=== PATIENT | female | born 1985 | race Caucasian/White ===

== ENCOUNTER 2018-11-14 00:54 | Emergency (ER) | payer MEDICAID, OTHER ==
[2018-11-14] MEDS ORDERED: Zofran 4 MG/2 ML VIAL IV ONE (01:21)
[2018-11-14] MEDS ORDERED: Hydromorphone 1 mg/ml Ampule IV ONE ×2 (01:21→05:21)
--- NOTE | 2018-11-14 01:21 | ERPHSYRPT ---
- History of Present Illness Time Seen by Provider: 11/14/18 01:10 Historian: patient, family Exam Limitations: clinical condition Patient Subjective Stated Complaint: Abdominal Pain Triage Nursing Assessment: Patient's brought back to ED and transferred self to bed. Patient complains of abdominal pain on right lower side 10/10. Patients abdomen soft and round with BS X 4 present. Patient also complains of N/V. Patient currently vomiting large amount of brown emesis. Physician History: 33 y/o white female, with h/o kidney stones, presents with sudden onset of sharp cramping pain in right flank and right lower quad of a few hour duration. similar to ureterolithiasis pain in past. pt has had a btl in past. Timing/Duration: today Activities at Onset: none Quality: cramping, sharpness Abdominal Pain Onset Location: RLQ, flank (right) Modifying Factors: Improves With: nothing Associated Symptoms: back, diaphoresis, vomiting Previous symptoms: same symptoms as today Allergies/Adverse Reactions: No Known Drug Allergies Allergy (Verified 11/14/18 01:02) Hx Tetanus, Diphtheria Vaccination/Date Given: (UNKNOWN) Hx Influenza Vaccination/Date Given: No Hx Pneumococcal Vaccination/Date Given: No Immunizations Up to Date: Yes - Review of Systems Constitutional: No Symptoms Eyes: No Symptoms Ears, Nose, & Throat: No Symptoms Respiratory: No Symptoms Cardiac: No Symptoms Abdominal/Gastrointestinal: Abdominal Pain, Nausea, Vomiting Genitourinary Symptoms: Flank Pain (right), No Dysuria, No Frequency, No Hematuria Musculoskeletal: No Symptoms Skin: No Symptoms Neurological: No Symptoms Psychological: No Symptoms Endocrine: No Symptoms Hematologic/Lymphatic: No Symptoms Immunological/Allergic: No Symptoms All Other Systems: Reviewed and Negative - Past Medical History Pertinent Past Medical History: Yes ENT History: Other Cardiac History: Hypertension Musculoskeletal History: Other History: Other Psycho-Social History: Depression Other Medical History: KIDNEY STONES, BACK PAIN - Past Surgical History Past Surgical History: Yes Neuro Surgical History: No Pertinent History Cardiac: No Pertinent History Respiratory: No Pertinent History Gastrointestinal: No Pertinent History Genitourinary: No Pertinent History Female Surgical History: Section, Tubal Ligation Other Surgical History: SEVERAL SURGERIS ON SALIVARY GLANDS, LITHOTRIPSY - Social History Smoking Status: Current every day smoker How long have you smoked: Since 9 Exposure to second hand smoke: Yes Alcohol Use: None Drug Use: none Patient Lives Alone: No Significant Family History: heart disease, diabetes - Female History Hx Last Menstrual Period: Last week Hx Now: No - Nursing Vital Signs Nursing Vital Signs: Initial Vital Signs Pulse Rate 119 H 11/14/18 01:02 Respiratory Rate 22 11/14/18 01:02 Blood Pressure 175/103 11/14/18 01:02 O2 Sat by Pulse Oximetry 100 11/14/18 01:02 Pain Scale Pain Intensity 4 - Physical Exam General Appearance: mild distress, alert, anxiety Eye Exam: PERRL/EOMI, eyes nml inspection Ears, Nose, Throat Exam: normal ENT inspection, moist mucous membranes Neck Exam: normal inspection, non-tender, supple, full range of motion Respiratory Exam: normal breath sounds, lungs clear, airway intact, No chest tenderness, No respiratory distress Cardiovascular Exam: regular rate/rhythm, normal heart sounds, normal peripheral pulses Gastrointestinal/Abdomen Exam: soft, normal bowel sounds, tenderness (right lq) , No guarding, No bruit Pelvic Exam: not done Rectal Exam: not done Back Exam: normal inspection, normal range of motion, CVA tenderness (right), No vertebral tenderness Extremity Exam: normal inspection, normal range of motion, deformities Neurologic Exam: alert, oriented x 3, cooperative, 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 Skin Exam: normal color, warm, dry Lymphatic Exam: No adenopathy SpO2 Interpretation: normal SpO2: 100 - Course Nursing assessment & vital signs reviewed: Yes Ordered Tests: Active Orders 24 hr Category Date Time Status IV Insertion STAT Care 11/14/18 01:21 Active ABDOMEN AND PELVIS W/0 CONTRAS [CT] Stat Exams 11/14/18 01:22 Taken AMYLASE Stat Lab 11/14/18 01:30 Completed CBC W DIFF Stat Lab 11/14/18 01:30 Completed CMP Stat Lab 11/14/18 01:30 Completed CULTURE,URINE Stat Lab 11/14/18 01:38 Received HCG,QUALITATIVE URINE Stat Lab 11/14/18 01:38 Completed LIPASE Stat Lab 11/14/18 01:30 Completed Lactic Acid Stat Lab 11/14/18 01:35 Completed Manual Differential NC Stat Lab 11/14/18 01:30 Completed UA W/RFX UR CULTURE Stat Lab 11/14/18 01:38 Completed Medication Summary Discontinued Medications Generic Name Dose Route Start Last Admin Trade Name Freq PRN Reason Stop Dose Admin Hydromorphone HCl 1 mg 11/14/18 01:21 11/14/18 01:48 Hydromorphone 1 Mg/Ml Ampule IV 11/14/18 01:22 1 mg STAT ONE Administration Hydromorphone HCl Confirm 11/14/18 01:30 Hydromorphone 1 Mg/Ml Ampule Administered 11/14/18 01:31 Dose 1 mg .ROUTE .STK-MED ONE Sodium Chloride 1,000 mls @ 999 mls/hr 11/14/18 01:21 11/14/18 03:01 Sodium Chloride 0.9% 1000 Ml IV 11/14/18 02:21 500 mls/hr .Q1H1M STA Administration Sodium Chloride Confirm 11/14/18 01:25 Sodium Chloride 0.9% 1000 Ml Administered 11/14/18 01:26 Dose 1,000 mls @ ud .ROUTE .STK-MED ONE Sodium Chloride Confirm 11/14/18 03:01 Sodium Chloride 0.9% 1000 Ml Administered 11/14/18 03:02 Dose 1,000 mls @ ud .ROUTE .STK-MED ONE Ketorolac Tromethamine 30 mg 11/14/18 02:31 11/14/18 02:34 Toradol 30 Mg Injection IM 11/14/18 02:32 30 mg STAT ONE Administration Ketorolac Tromethamine Confirm 11/14/18 02:33 Toradol 30 Mg Injection Administered 11/14/18 02:34 Dose 30 mg .ROUTE .STK-MED ONE Ondansetron HCl 4 mg 11/14/18 01:21 11/14/18 01:47 Zofran 4 Mg/2 Ml Vial IV 11/14/18 01:22 4 mg STAT ONE Administration Ondansetron HCl Confirm 11/14/18 01:25 Zofran 4 Mg/2 Ml Vial Administered 11/14/18 01:26 Dose 4 mg .ROUTE .STK-MED ONE Lab/Rad Data: Laboratory Result Diagrams 11/14/18 01:30 11/14/18 01:30 Laboratory Results 11/14/18 11/14/18 11/14/18 Range/Units 01:38 01:38 01:35 WBC (4.0-10.5) K/mm3 RBC (4.1-5.4) M/mm3 Hgb (12.0-16.0) gm/dl Hct (35-47) % MCV (78-100) fl MCH (26-32) pg MCHC (32-36) g/dl RDW (11.5-14.0) % Plt Count (150-450) K/mm3 MPV (6-9.5) fl Absolute Granulocytes (1.4-6.9) Segmented Neutrophils (36.0-66.0) % Band Neutrophils (0.0-2.0) % Lymphocytes (Manual) (24-44) % Monocytes (Manual) (0.0-12.0) % Eosinophils (Manual) (0.00-3.0) % Toxic Granulation Platelet Estimate (NORMAL) RBC Morphology Sodium (137-145) mmol/L Potassium (3.5-5.1) mmol/L Chloride (98-107) mmol/L Carbon Dioxide (22-30) mmol/L Anion Gap (5-15) MEQ/L BUN (7-17) mg/dL Creatinine (0.52-1.04) mg/dL Estimated GFR ML/MIN Glucose (74-106) mg/dL Lactic Acid 1.6 (0.4-2.0) Calcium (8.4-10.2) mg/dL Total Bilirubin (0.2-1.3) mg/dL AST (14-36) U/L ALT (0-35) U/L Alkaline Phosphatase (38-126) U/L Serum Total Protein (6.3-8.2) g/dL Albumin (3.5-5.0) g/dL Amylase (30-110) U/L Lipase (23-300) U/L Urine Color YELLOW (YELLOW) Urine Appearance SLIGHTLY CLOUDY (CLEAR) Urine pH 7.0 (5-6) Ur Specific [place] 1.015 (1.005-1.025) Urine Protein NEGATIVE (Negative) Urine Ketones NEGATIVE (NEGATIVE) Urine Blood MODERATE (0-5) Rey/ul Urine Nitrite NEGATIVE (NEGATIVE) Urine Bilirubin NEGATIVE (NEGATIVE) Urine Urobilinogen NEGATIVE (0-1) mg/dL Ur Leukocyte Esterase SMALL (NEGATIVE) Urine WBC (Auto) 16-25 (0-5) /HPF Urine RBC (Auto) 51-100 (0-2) /HPF U Epithel Cells (Auto) NONE (FEW) /HPF Urine Bacteria (Auto) FEW (NEGATIVE) /HPF Urine Mucus (Auto) SLIGHT (NEGATIVE) /HPF Urine Culture Reflexed YES (NO) Urine Glucose NEGATIVE (NEGATIVE) mg/dL Urine HCG, Qual NEGATIVE (Negative) 11/14/18 11/14/18 Range/Units 01:30 01:30 WBC 10.0 (4.0-10.5) K/mm3 RBC 4.90 (4.1-5.4) M/mm3 Hgb 14.0 (12.0-16.0) gm/dl Hct 41.4 (35-47) % MCV 84.5 (78-100) fl MCH 28.6 (26-32) pg MCHC 33.8 (32-36) g/dl RDW 12.9 (11.5-14.0) % Plt Count 280 (150-450) K/mm3 MPV 10.6 H (6-9.5) fl Absolute Granulocytes 6.37 (1.4-6.9) Segmented Neutrophils 67 H (36.0-66.0) % Band Neutrophils 3 H (0.0-2.0) % Lymphocytes (Manual) 23 L (24-44) % Monocytes (Manual) 4 (0.0-12.0) % Eosinophils (Manual) 3 (0.00-3.0) % Toxic Granulation 1+ Platelet Estimate NORMAL (NORMAL) RBC Morphology ABNORMAL Sodium 137 (137-145) mmol/L Potassium 3.8 (3.5-5.1) mmol/L Chloride 100 (98-107) mmol/L Carbon Dioxide 27 (22-30) mmol/L Anion Gap 13.4 (5-15) MEQ/L BUN 8 (7-17) mg/dL Creatinine 0.76 (0.52-1.04) mg/dL Estimated GFR > 60.0 ML/MIN Glucose 108 H (74-106) mg/dL Lactic Acid (0.4-2.0) Calcium 9.3 (8.4-10.2) mg/dL Total Bilirubin 0.50 (0.2-1.3) mg/dL AST 58 H (14-36) U/L ALT 91 H (0-35) U/L Alkaline Phosphatase 112 (38-126) U/L Serum Total Protein 7.4 (6.3-8.2) g/dL Albumin 3.9 (3.5-5.0) g/dL Amylase 58 (30-110) U/L Lipase 56 (23-300) U/L Urine Color (YELLOW) Urine Appearance (CLEAR) Urine pH (5-6) Ur Specific [place] (1.005-1.025) Urine Protein (Negative) Urine Ketones (NEGATIVE) Urine Blood (0-5) Rey/ul Urine Nitrite (NEGATIVE) Urine Bilirubin (NEGATIVE) Urine Urobilinogen (0-1) mg/dL Ur Leukocyte Esterase (NEGATIVE) Urine WBC (Auto) (0-5) /HPF Urine RBC (Auto) (0-2) /HPF U Epithel Cells (Auto) (FEW) /HPF Urine Bacteria (Auto) (NEGATIVE) /HPF Urine Mucus (Auto) (NEGATIVE) /HPF Urine Culture Reflexed (NO) Urine Glucose (NEGATIVE) mg/dL Urine HCG, Qual (Negative) - Progress Progress: improved, re-examined Progress Note: 11/14/18 05:22 ct scan abd/pelvis-4.3mm right mid ureteral stone with moderate right hydronephrosis, hydroureter. Counseled pt/family regarding: lab results, diagnosis, need for follow-up, rad results - Departure Time of Disposition: 05:24 Departure Disposition: Home Clinical Impression: Ureterolithiasis, UTI (urinary tract infection) Condition: Stable Critical Care Time: No Referrals: DOCTOR,NO FAMILY [Primary Care Provider] - Additional Instructions: drink plenty of fluids. follow up with your urologist to address right 4.3mm ureteral stone. add ibuprofen as discussed for pain. Prescriptions: Hydrocodone/APAP 5-325 Tab^^^ [[place] 5-325 Tablet^^^] 1 tab PO Q6HPRN PRN #10 tablet MDD 6 PRN Reason: Pain Ciprofloxacin [Cipro 500 MG] 500 mg PO BID #14 tablet
[2018-11-14] MEDS ORDERED: Sodium Chloride 0.9% 1000 ML 1,000 ML ONE ×2 (01:25→03:01)
[2018-11-14] MEDS ORDERED: Zofran 4 MG/2 ML VIAL ONE (01:25)
[2018-11-14] MEDS ORDERED: Hydromorphone 1 mg/ml Ampule ONE ×2 (01:30→05:24)
[2018-11-14 01:36] LABS: Granulocyte Absolute (ANC) 6.37 (1.4-6.9); Hematocrit 41.4 % (35-47); Mean Cell Volume 84.5 fl (78-100); Mean Corpuscular Hemoglobin 28.6 pg (26-32); Mean Corpuscular Hgb Concent. 33.8 g/dl (32-36); Mean Platelet Volume 10.6 fl (6-9.5); Platelet Count 280 K/mm3 (150-450); Red Cell Distribution Width 12.9 % (11.5-14.0)
[2018-11-14] MEDS: Sodium Chloride 0.9% 1000 ML 1,000 ML IV STA ×2 (01:48→03:01)
[2018-11-14 01:50] LABS: Appearance SLIGHTLY CLOUDY (CLEAR); Bacteria FEW /HPF (NEGATIVE); Bilirubin NEGATIVE (NEGATIVE); Blood MODERATE Ery/ul (0-5); Glucose NEGATIVE (NEGATIVE); Ketones NEGATIVE (NEGATIVE); Leukocyte Esterase SMALL (NEGATIVE); Mucus SLIGHT /HPF (NEGATIVE); Nitrite NEGATIVE (NEGATIVE); Protein,Urine Dip NEGATIVE (Negative); RBC 51-100 /HPF (0-2); Specific Gravity 1.015 (1.005-1.025); Urobilinogen NEGATIVE mg/dL (0-1)
[2018-11-14 01:59] LABS: BAND 3 % (0.0-2.0); Eosinophil 3 % (0.00-3.0); Lymphocytes 23 % (24-44); Monocyte 4 % (0.0-12.0); Neutrophils 67 % (36.0-66.0); Total Cells Counted 100
[2018-11-14 02:00] LABS: ALBUMIN 3.9 g/dL (3.5-5.0); ALKALINE PHOSPHATASE 112 U/L (38-126); AMYLASE 58 U/L (30-110); ANION GAP 13.4 MEQ/L (5-15); BLOOD UREA NITROGEN 8 mg/dL (7-17); CHLORIDE 100 mmol/L (98-107); Calcium 9.3 mg/dL (8.4-10.2); Carbon Dioxide 27 mmol/L (22-30); Creatinine 1 0.76 mg/dL (0.52-1.04); Glucose 108 mg/dL (74-106); LIPASE 56 U/L (23-300); Platelet Estimate NORMAL (NORMAL); Potassium 3.8 mmol/L (3.5-5.1); SGOT/AST 58 U/L (14-36); SGPT/ALT 91 U/L (0-35); SODIUM 137 mmol/L (137-145); Total Protein 7.4 g/dL (6.3-8.2); Toxic Granulation 1+
[2018-11-14] MEDS ORDERED: TORAdol 30 mg Injection IM ONE (02:31)
[2018-11-14] MEDS ORDERED: TORAdol 30 mg Injection ONE (02:33)
[2018-11-14 05:15] VITALS: PULSE 97
[2018-11-14] MEDS ORDERED: Cipro 500 MG PO ONE (05:21)
[2018-11-14] MEDS ORDERED: Cipro 500 MG ONE (05:24)
[2018-11-14 05:43] VITALS: BP 142/98; O2SAT 98
--- NOTE | 2018-11-14 09:27 | XRAY ---
Indication: Right flank pain. History stones. Multiple contiguous axial images obtained through the abdomen and pelvis without contrast as ordered. Comparison: None Lung bases demonstrates mild bibasilar dependent atelectasis and tiny left base calcified granuloma. No infiltrate or effusion. Heart is not enlarged. Noncontrasted stomach and bowel loops appear nonobstructed. Normal appendix. A few bilateral ovary cysts, largest on the left measuring 3 cm. Small cul-de-sac fluid presumed physiologic from rupture/leaking cyst. No free air. There is a 3-4 mm right mid ureteral calculus, approximately L4-L5 interspace level. Proximal right ureter is prominent along with moderate hydronephrosis consistent with obstructive uropathy. No perinephric fluid. At least 3 additional right renal calculi, largest 4 mm mid renal pelvis. At least 2 gallstones, largest 2.8 cm. Remaining liver, pancreas, spleen, adrenal glands, left kidney, left ureter, bladder, uterus, and aorta appear unremarkable for noncontrast exam. Osseous structures intact. Impression: 1. 3-4 mm right mid ureteral calculus producing obstruction as detailed. Additional right renal micro-calculi. 2. Gallstones better evaluated with sonogram if clinically warranted. 3. 3 cm left ovary cyst. Small cul-de-sac fluid presumed physiologic from rupture/leaking cyst. Comment: Preliminary interpretation was made by [facility]. No discrepancy. CT DI 22.39
== END 2018-11-14 05:50 | disposition home or self-care (01) ==
LOC: ED 00:54
DX: N13.2 Hydronephrosis with renal and ureteral calculous obstruction (principal); N39.0 Urinary tract infection, site not specified; Z87.442 Personal history of urinary calculi; I10 Essential (primary) hypertension; F32.9 Major depressive disorder, single episode, unspecified; Z72.0 Tobacco use
CPT/HCPCS: 36000; 36415; 74176; 80053; 81001; 82150; 83605; 83690; 84703; 85025; 87077; 87086; 87186; 96360; 96361; 96374; 96375; 96376; 99285; J1170; J1885; J2405; A9270-GY

== ENCOUNTER 2020-05-07 21:52 | Emergency (ER) | payer MEDICAID ==
--- NOTE | 2020-05-07 21:58 | ERPHSYRPT ---
- History of Present Illness Time Seen by Provider: 05/07/20 21:57 Historian: patient Exam Limitations: clinical condition Physician History: This is a 35-year-old white female who has a history of depression, hypertension and presents with right upper quadrant abdominal pain as well as right flank pain that is sharp and stabbing. She has no chest pain and no shortness of breath. Patient states the location of the pain depends on how she is laying. Patient has a history of kidney stones and ureteral stones. She has had to have lithotripsy in the past as well. Patient has a history of bilateral tubal ligation and . Patient began vomiting approximately 3 hours ago. Patient has no flulike symptoms. Patient has a history of drug dependence and admits to using methamphetamines earlier today Timing/Duration: yesterday Activities at Onset: none Quality: sharpness, stabbing Abdominal Pain Onset Location: RUQ, flank (Right flank) Pain Radiation: RUQ Severity of Pain-Max: moderate Severity of Pain-Current: moderate Modifying Factors: Improves With: lying down, vomiting Associated Symptoms: diaphoresis, nausea, vomiting, No chest pain, No fever/chills, No headache, No shortness of breath Previous symptoms: same symptoms as today Allergies/Adverse Reactions: No Known Drug Allergies Allergy (Verified 11/14/18 01:02) Hx Tetanus, Diphtheria Vaccination/Date Given: (UNKNOWN) Hx Influenza Vaccination/Date Given: No Hx Pneumococcal Vaccination/Date Given: No Travel Risk - International Travel Have you traveled outside of the country in past 3 weeks: No - Coronavirus Screening Are you exhibiting any of the following symptoms?: No Close contact with a COVID-19 positive Pt in past 14-21 Days: No - Review of Systems Constitutional: No Symptoms Eyes: No Symptoms Ears, Nose, & Throat: No Symptoms Respiratory: No Symptoms Cardiac: No Symptoms Abdominal/Gastrointestinal: Abdominal Pain (Upper quadrant right side), Nausea, Vomiting Genitourinary Symptoms: Flank Pain (Right side), No Dysuria, No Frequency Musculoskeletal: No Symptoms Skin: No Symptoms Neurological: No Symptoms Psychological: No Symptoms Endocrine: No Symptoms Hematologic/Lymphatic: No Symptoms Immunological/Allergic: No Symptoms All Other Systems: Reviewed and Negative - Past Medical History Pertinent Past Medical History: Yes Neurological History: No Pertinent History ENT History: Other Cardiac History: Hypertension Respiratory History: No Pertinent History Endocrine Medical History: No Pertinent History Musculoskeletal History: Other GI Medical History: No Pertinent History History: Other Psycho-Social History: Depression Female Reproductive Disorders: No Pertinent History Other Medical History: KIDNEY STONES, BACK PAIN - Past Surgical History Past Surgical History: Yes Neuro Surgical History: No Pertinent History Cardiac: No Pertinent History Respiratory: No Pertinent History Gastrointestinal: No Pertinent History Genitourinary: No Pertinent History Female Surgical History: Section, Tubal Ligation Other Surgical History: SEVERAL SURGERIS ON SALIVARY GLANDS, LITHOTRIPSY - Social History Smoking Status: Current every day smoker How long have you smoked: Since 9 Exposure to second hand smoke: Yes Alcohol Use: None Drug Use: none Patient Lives Alone: No Significant Family History: heart disease, diabetes - Nursing Vital Signs Nursing Vital Signs: Initial Vital Signs Temperature 97.9 F 05/07/20 21:59 Pulse Rate 88 05/07/20 21:59 Respiratory Rate 18 05/07/20 21:59 Blood Pressure 186/134 05/07/20 21:59 O2 Sat by Pulse Oximetry 99 05/07/20 21:59 Pain Scale Pain Intensity 6 - Physical Exam General Appearance: moderate distress, alert, anxiety Eye Exam: PERRL/EOMI, eyes nml inspection Ears, Nose, Throat Exam: normal ENT inspection, moist mucous membranes Neck Exam: normal inspection, non-tender, supple, full range of motion Respiratory Exam: normal breath sounds, lungs clear, No chest tenderness, No respiratory distress Cardiovascular Exam: regular rate/rhythm, normal heart sounds, normal peripheral pulses Gastrointestinal/Abdomen Exam: soft, normal bowel sounds, tenderness (Right upper quadrant), guarding (Mild) Back Exam: normal inspection, normal range of motion, CVA tenderness (Right), No vertebral tenderness Extremity Exam: normal inspection, normal range of motion, pelvis stable Neurologic Exam: alert, oriented x 3, cooperative, 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, normal mood/affect, nml cerebellar function, nml station & gait, sensation nml Skin Exam: normal color, warm, dry Lymphatic Exam: No adenopathy SpO2 Interpretation: normal O2 Delivery: Room Air - Course Nursing assessment & vital signs reviewed: Yes Ordered Tests: Active Orders 24 hr Category Date Time Status IV Insertion STAT Care 05/07/20 22:03 Active ABDOMEN AND PELVIS W/0 CONTRAS [CT] Stat Exams 05/07/20 22:03 Taken AMYLASE Stat Lab 05/07/20 22:57 Completed CBC W DIFF Stat Lab 05/07/20 22:57 Completed CMP Stat Lab 05/07/20 22:57 Completed LIPASE Stat Lab 05/07/20 22:57 Completed Lactic Acid Stat Lab 05/07/20 22:48 Completed UA W/RFX UR CULTURE Stat Lab 05/07/20 23:21 Completed Urine Triage Profile Stat Lab 05/07/20 23:21 Completed Medication Summary Discontinued Medications Generic Name Dose Route Start Last Admin Trade Name Barry PRN Reason Stop Dose Admin Hydrocodone Bitart/Acetaminophen 2 tab 05/08/20 00:08 [place] 5/325 Mg PO 05/08/20 00:09 SENT HOME W/ PATIENT ONE Hydromorphone HCl 1 mg 05/07/20 22:03 05/07/20 22:12 Hydromorphone 1 Mg/Ml Ampule IV 05/07/20 22:04 1 mg STAT ONE Administration Hydromorphone HCl Confirm 05/07/20 22:07 Hydromorphone 1 Mg/Ml Ampule Administered 05/07/20 22:08 Dose 1 mg .ROUTE .STK-MED ONE Sodium Chloride 1,000 mls @ 999 mls/hr 05/07/20 22:03 05/07/20 23:25 Sodium Chloride 0.9% 1000 Ml IV 05/07/20 23:03 Infused .Q1H1M STA Infusion Sodium Chloride Confirm 05/07/20 22:08 Sodium Chloride 0.9% 1000 Ml Administered 05/07/20 22:09 Dose 1,000 mls @ ud .ROUTE .STK-MED ONE Ketorolac Tromethamine 30 mg 05/07/20 22:03 05/07/20 22:12 Toradol 30 Mg Injection IV 05/07/20 22:04 30 mg STAT ONE Administration Ketorolac Tromethamine Confirm 05/07/20 22:07 Toradol 30 Mg Injection Administered 05/07/20 22:08 Dose 30 mg .ROUTE .STK-MED ONE Ondansetron HCl 4 mg 05/07/20 22:03 05/07/20 22:12 Zofran 4 Mg/2 Ml Vial IV 05/07/20 22:04 4 mg STAT ONE Administration Ondansetron HCl Confirm 05/07/20 22:07 Zofran 4 Mg/2 Ml Vial Administered 05/07/20 22:08 Dose 4 mg .ROUTE .STK-MED ONE Lab/Rad Data: Laboratory Result Diagrams 05/07/20 22:57 05/07/20 22:57 Laboratory Results 05/07/20 05/07/20 05/07/20 Range/Units 23:21 23:21 22:57 WBC (4.0-10.5) K/mm3 RBC (4.1-5.4) M/mm3 Hgb (12.0-16.0) gm/dl Hct (35-47) % MCV (78-100) fl MCH (26-32) pg MCHC (32-36) g/dl RDW (11.5-14.0) % Plt Count (150-450) K/mm3 MPV (7.5-11.0) fl Gran % (36.0-66.0) % Eos # (Auto) (0-0.5) Absolute Lymphs (auto) (1.0-4.6) Absolute Monos (auto) (0.0-1.3) Lymphocytes % (24.0-44.0) % Monocytes % (0.0-12.0) % Eosinophils % (0.00-5.0) % Basophils % (0.0-0.4) % Absolute Granulocytes (1.4-6.9) Basophils # (0-0.4) Sodium 136 L (137-145) mmol/L Potassium 3.5 (3.5-5.1) mmol/L Chloride 107 (98-107) mmol/L Carbon Dioxide 26 (22-30) mmol/L Anion Gap 7.2 (5-15) MEQ/L BUN 6 L (7-17) mg/dL Creatinine 0.70 (0.52-1.04) mg/dL Estimated GFR > 60.0 ML/MIN Glucose 96 (74-106) mg/dL Lactic Acid (0.4-2.0) Calcium 8.2 L (8.4-10.2) mg/dL Total Bilirubin 0.60 (0.2-1.3) mg/dL AST 43 H (14-36) U/L ALT 63 H (0-35) U/L Alkaline Phosphatase 86 (38-126) U/L Serum Total Protein 6.9 (6.3-8.2) g/dL Albumin 3.5 (3.5-5.0) g/dL Amylase 58 (30-110) U/L Lipase 32 (23-300) U/L Urine Color YELLOW (YELLOW) Urine Appearance CLOUDY (CLEAR) Urine pH 7.0 (5-6) Ur Specific [place] 1.019 (1.005-1.025) Urine Protein NEGATIVE (Negative) Urine Ketones SMALL (NEGATIVE) Urine Blood SMALL (0-5) Rey/ul Urine Nitrite NEGATIVE (NEGATIVE) Urine Bilirubin NEGATIVE (NEGATIVE) Urine Urobilinogen 2 (0-1) mg/dL Ur Leukocyte Esterase NEGATIVE (NEGATIVE) Urine WBC (Auto) 6-10 (0-5) /HPF Urine RBC (Auto) 26-50 (0-2) /HPF U Epithel Cells (Auto) RARE (FEW) /HPF Urine Bacteria (Auto) FEW (NEGATIVE) /HPF Amorphous Crystals MODERATE (NEGATIVE) /HPF Urine Mucus (Auto) SLIGHT (NEGATIVE) /HPF Urine Culture Reflexed NO (NO) Urine Glucose NEGATIVE (NEGATIVE) mg/dL Urine Opiates Level POSITIVE (NEGATIVE) Ur Methadone NEGATIVE (NEGATIVE) Urine Barbiturates NEGATIVE (NEGATIVE) Ur Phencyclidine (PCP) NEGATIVE (NEGATIVE) Urine Amphetamine POSITIVE (NEGATIVE) U Benzodiazepine Level NEGATIVE (NEGATIVE) Urine Cocaine NEGATIVE (NEGATIVE) Urine Marijuana (THC) POSITIVE (NEGATIVE) 05/07/20 05/07/20 Range/Units 22:57 22:48 WBC 8.5 (4.0-10.5) K/mm3 RBC 4.33 (4.1-5.4) M/mm3 Hgb 12.6 (12.0-16.0) gm/dl Hct 37.6 (35-47) % MCV 86.8 (78-100) fl MCH 29.1 (26-32) pg MCHC 33.5 (32-36) g/dl RDW 13.5 (11.5-14.0) % Plt Count 212 (150-450) K/mm3 MPV 11.1 H (7.5-11.0) fl Gran % 67.9 H (36.0-66.0) % Eos # (Auto) 0.05 (0-0.5) Absolute Lymphs (auto) 2.05 (1.0-4.6) Absolute Monos (auto) 0.60 (0.0-1.3) Lymphocytes % 24.2 (24.0-44.0) % Monocytes % 7.1 (0.0-12.0) % Eosinophils % 0.6 (0.00-5.0) % Basophils % 0.2 (0.0-0.4) % Absolute Granulocytes 5.76 (1.4-6.9) Basophils # 0.02 (0-0.4) Sodium (137-145) mmol/L Potassium (3.5-5.1) mmol/L Chloride (98-107) mmol/L Carbon Dioxide (22-30) mmol/L Anion Gap (5-15) MEQ/L BUN (7-17) mg/dL Creatinine (0.52-1.04) mg/dL Estimated GFR ML/MIN Glucose (74-106) mg/dL Lactic Acid 0.4 (0.4-2.0) Calcium (8.4-10.2) mg/dL Total Bilirubin (0.2-1.3) mg/dL AST (14-36) U/L ALT (0-35) U/L Alkaline Phosphatase (38-126) U/L Serum Total Protein (6.3-8.2) g/dL Albumin (3.5-5.0) g/dL Amylase (30-110) U/L Lipase (23-300) U/L Urine Color (YELLOW) Urine Appearance (CLEAR) Urine pH (5-6) Ur Specific [place] (1.005-1.025) Urine Protein (Negative) Urine Ketones (NEGATIVE) Urine Blood (0-5) Rey/ul Urine Nitrite (NEGATIVE) Urine Bilirubin (NEGATIVE) Urine Urobilinogen (0-1) mg/dL Ur Leukocyte Esterase (NEGATIVE) Urine WBC (Auto) (0-5) /HPF Urine RBC (Auto) (0-2) /HPF U Epithel Cells (Auto) (FEW) /HPF Urine Bacteria (Auto) (NEGATIVE) /HPF Amorphous Crystals (NEGATIVE) /HPF Urine Mucus (Auto) (NEGATIVE) /HPF Urine Culture Reflexed (NO) Urine Glucose (NEGATIVE) mg/dL Urine Opiates Level (NEGATIVE) Ur Methadone (NEGATIVE) Urine Barbiturates (NEGATIVE) Ur Phencyclidine (PCP) (NEGATIVE) Urine Amphetamine (NEGATIVE) U Benzodiazepine Level (NEGATIVE) Urine Cocaine (NEGATIVE) Urine Marijuana (THC) (NEGATIVE) - Progress Progress: improved, pain not gone completely, re-examined Progress Note: 05/08/20 00:10 CAT scan of the abdomen and pelvis shows cholelithiasis without cholecystitis. There is a gallstone within the neck of the gallbladder. There is right sided renal stones but no ureteral stones present. Counseled pt/family regarding: lab results, diagnosis, need for follow-up, rad results - Departure Departure Disposition: Home Clinical Impression: Cholelithiasis, Methamphetamine abuse Condition: Stable Critical Care Time: No Referrals: DOCTOR,NO FAMILY [Primary Care Provider] - Additional Instructions: Avoid fatty greasy spicy foods. Drink plenty of fluids. Stop using methamphetamines. Call your primary care doctor or general surgeon later today to make an appointment to arrange for gallbladder ultrasound and outpatient cholecystectomy if indicated. Prescriptions: Hydrocodone/APAP 5/325 [[place] 5/325 mg] 1 each PO Q8H PRN PRN #6 tablet MDD 3 PRN Reason: Pain
[2020-05-07] MEDS ORDERED: TORAdol 30 mg Injection IV ONE (22:03)
[2020-05-07] MEDS ORDERED: Sodium Chloride 0.9% 1000 ML 1,000 ML IV STA (22:03)
[2020-05-07] MEDS ORDERED: Hydromorphone 1 mg/ml Ampule IV ONE (22:03)
[2020-05-07] MEDS ORDERED: Zofran 4 MG/2 ML VIAL IV ONE (22:03)
[2020-05-07] MEDS ORDERED: Hydromorphone 1 mg/ml Ampule ONE (22:07)
[2020-05-07] MEDS ORDERED: Zofran 4 MG/2 ML VIAL ONE (22:07)
[2020-05-07] MEDS ORDERED: TORAdol 30 mg Injection ONE (22:07)
[2020-05-07] MEDS ORDERED: Sodium Chloride 0.9% 1000 ML 1,000 ML ONE (22:08)
[2020-05-07 23:00] LABS: Absolute Neutrophil Ct (ANC) 5.76 (1.4-6.9); BASOPHIL % 0.2 % (0.0-0.4); Basophil (Absolute #) 0.02 (0-0.4); Eosinophil % 0.6 % (0.00-5.0); Eosinophil (Absolute #) 0.05 (0-0.5); Hematocrit 37.6 % (35-47); Hemoglobin 12.6 gm/dl (12.0-16.0); Lymphocyte (Absolute #) 2.05 (1.0-4.6); Lymphocytes % 24.2 % (24.0-44.0); Mean Cell Volume 86.8 fl (78-100); Mean Corpuscular Hemoglobin 29.1 pg (26-32); Mean Corpuscular Hgb Concent. 33.5 g/dl (32-36); Mean Platelet Volume 11.1 fl (7.5-11.0); Monocytes % 7.1 % (0.0-12.0); Neutrophil % 67.9 % (36.0-66.0); Platelet Count 212 K/mm3 (150-450); Red Blood Count 4.33 M/mm3 (4.1-5.4); Red Cell Distribution Width 13.5 % (11.5-14.0); White Blood Count 8.5 K/mm3 (4.0-10.5)
[2020-05-07 23:11] LABS: ALBUMIN 3.5 g/dL (3.5-5.0); ALKALINE PHOSPHATASE 86 U/L (38-126); AMYLASE 58 U/L (30-110); ANION GAP 7.2 MEQ/L (5-15); BLOOD UREA NITROGEN 6 mg/dL (7-17); CHLORIDE 107 mmol/L (98-107); Calcium 8.2 mg/dL (8.4-10.2); Carbon Dioxide 26 mmol/L (22-30); Glucose 96 mg/dL (74-106); LIPASE 32 U/L (23-300); Potassium 3.5 mmol/L (3.5-5.1); SGOT/AST 43 U/L (14-36); SGPT/ALT 63 U/L (0-35); SODIUM 136 mmol/L (137-145); Total Protein 6.9 g/dL (6.3-8.2)
[2020-05-07 23:33] LABS: Amourphous Crystal MODERATE /HPF (NEGATIVE); Appearance CLOUDY (CLEAR); Bacteria FEW /HPF (NEGATIVE); Bilirubin NEGATIVE (NEGATIVE); Blood SMALL Ery/ul (0-5); Epithelial Cells RARE /HPF (FEW); Glucose NEGATIVE (NEGATIVE); Ketones SMALL (NEGATIVE); Leukocyte Esterase NEGATIVE (NEGATIVE); Mucus SLIGHT /HPF (NEGATIVE); Nitrite NEGATIVE (NEGATIVE); Protein,Urine Dip NEGATIVE (Negative); RBC 26-50 /HPF (0-2); Specific Gravity 1.019 (1.005-1.025); Urobilinogen 2 mg/dL (0-1)
[2020-05-07 23:41] LABS: Barbiturate,Urine NEGATIVE (NEGATIVE); Benzodiazepine,Urine NEGATIVE (NEGATIVE); Cocaine,Urine NEGATIVE (NEGATIVE); Methadone,Urine NEGATIVE (NEGATIVE); Opiate,Urine POSITIVE (NEGATIVE); PCP,Urine NEGATIVE (NEGATIVE); THC,Urine POSITIVE (NEGATIVE)
[2020-05-07 23:57] LABS: Amphetamine,Urine POSITIVE (NEGATIVE)
[2020-05-08] MEDS ORDERED: NORCO 5/325 MG PO ONE (00:08)
[2020-05-08] MEDS ORDERED: NORCO 5/325 MG ONE (00:11)
[2020-05-08 00:13] VITALS: BP 169/114; PULSE 85; O2SAT 98
[2020-05-08] MEDS ORDERED: Zofran 4 MG/2 ML VIAL IV ONE (00:20)
[2020-05-08] MEDS ORDERED: Zofran 4 MG/2 ML VIAL ONE (00:21)
--- NOTE | 2020-05-08 08:40 | XRAY ---
Indication: Right upper quadrant pain 2 days. Nausea and vomiting. History renal stones. Multiple contiguous axial images obtained through the abdomen and pelvis without contrast as ordered. Comparison: November 14, 2018. Lung bases clear with stable incidental left base calcified granuloma. Heart is not enlarged. Noncontrasted stomach and bowel loops appear nonobstructed. Normal appendix. Gallbladder is now moderately distended again with a few gallstones, largest 2.8 cm near the neck of the gallbladder. No biliary distention. Again nonobstructing right renal micro-calculi. Remaining liver, pancreas, spleen, adrenal glands, kidneys, ureters, bladder, uterus, and aorta appear unremarkable for noncontrast exam. Osseous structures intact. No ventral or inguinal hernias. Impression: 1. Distended gallbladder again with cholelithiasis. Gallbladder sonogram may yield further information. 2. Again nonobstructing right renal micro-calculi and left lung base calcified granuloma. 3. Remaining CT abdomen/pelvis without contrast exam is negative. Comment: Preliminary interpretation was made by [facility]. No critical discrepancy.
== END 2020-05-08 00:38 | disposition home or self-care (01) ==
LOC: ED 21:52
DX: K80.20 Calculus of gallbladder without cholecystitis without obstruction (principal); K80.80 Other cholelithiasis without obstruction; N20.0 Calculus of kidney; R10.11 Right upper quadrant pain; R11.2 Nausea with vomiting, unspecified; R61 Generalized hyperhidrosis; F17.219 Nicotine dependence, cigarettes, with unspecified nicotine-induced disorders; F15.129 Other stimulant abuse with intoxication, unspecified
CPT/HCPCS: 36000; 36415; 74176; 80053; 80307; 81001; 82150; 83605; 83690; 85025; 96360; 96374; 96375; 96376; 99284; J1170; J1885; J2405; A9270-GY

== ENCOUNTER 2020-05-09 13:13 | Observation (INO) | payer MEDICAID ==
[2020-05-09] MEDS ORDERED: Zofran 4 MG/2 ML VIAL IV ONE (13:59)
[2020-05-09] MEDS ORDERED: MORPHINE SULFATE 4 MG INJ IV ONE (13:59)
[2020-05-09 14:20] LABS: Absolute Neutrophil Ct (ANC) 9.52 (1.4-6.9); BASOPHIL % 0.2 % (0.0-0.4); Basophil (Absolute #) 0.02 (0-0.4); Eosinophil % 0.8 % (0.00-5.0); Eosinophil (Absolute #) 0.09 (0-0.5); Hematocrit 41.3 % (35-47); Lymphocyte (Absolute #) 1.43 (1.0-4.6); Mean Cell Volume 86.2 fl (78-100); Mean Corpuscular Hemoglobin 29.2 pg (26-32); Mean Corpuscular Hgb Concent. 33.9 g/dl (32-36); Mean Platelet Volume 11.1 fl (7.5-11.0); Monocyte (Absolute #) 0.82 (0.0-1.3); Monocytes % 6.9 % (0.0-12.0); Neutrophil % 80.1 % (36.0-66.0); Platelet Count 239 K/mm3 (150-450); Red Blood Count 4.79 M/mm3 (4.1-5.4); Red Cell Distribution Width 13.6 % (11.5-14.0); White Blood Count 11.9 K/mm3 (4.0-10.5)
[2020-05-09] MEDS ORDERED: Sodium Chloride 0.9% 1000 ML 1,000 ML IV STA (14:20)
[2020-05-09] MEDS ORDERED: Zofran 4 MG/2 ML VIAL ONE (14:20)
[2020-05-09] MEDS ORDERED: MORPHINE SULFATE 4 MG INJ ONE (14:20)
[2020-05-09] MEDS ORDERED: Sodium Chloride 0.9% 1000 ML 1,000 ML ONE (14:20)
--- NOTE | 2020-05-09 14:22 | ERPHSYRPT ---
- History of Present Illness Time Seen by Provider: 05/09/20 14:00 Historian: patient Exam Limitations: no limitations Patient Subjective Stated Complaint: Pt stated that she was here 2 days ago and regional yesterday due to her gall bladder, pt is vomitting and rates the pain as 9-10/10 and states that she can't stay like this until the when [facility] has scheduled her surgery, pt states that she was unable to pick her prescriptions up due to not having any money Triage Nursing Assessment: Pt was dropped off by someone at the ER, hyperte nsive, vomiting, diaphoretic, pulses normal, rates abdominal pain as 9-10/10, hasn't eaten in 4 days, pain with palpatation to RUQ Physician History: 35 years old female with history of hypertension, anxiety, depression, substance abuse who was evaluated in this ER day before yesterday and was evaluated in [facility] ER yesterday for right upper quadrant pain with vomiting. Patient was recommended outpatient follow-up with general surgery for cholecystectomy presented with moderate to severe upper abdominal pain with wrapping around to the back, aggravated with movements palpation and eating. Patient reports she is not able to hold anything down for the last 3 days. She is having multiple episodes of nonprojectile, nonbilious vomiting with no hematemesis. She denies fever or chills. Patient feels weak tired and dehydrated. She had a CAT scan done here and ultrasound done at [facility]. Patient reports she was prescribed medication but have not picked up anything because of lack of money. Timing/Duration: day(s) (3), sudden, worse Activities at Onset: rest Quality: sharpness, stabbing Abdominal Pain Onset Location: RUQ, epigastric Pain Radiation: back Severity of Pain-Max: severe Severity of Pain-Current: moderate Modifying Factors: Improves With: eating, movement, palpation Associated Symptoms: back, nausea, vomiting Previous symptoms: no prior history Allergies/Adverse Reactions: No Known Drug Allergies Allergy (Verified 05/09/20 13:59) Hx Tetanus, Diphtheria Vaccination/Date Given: (UNKNOWN) Hx Influenza Vaccination/Date Given: No Hx Pneumococcal Vaccination/Date Given: No Travel Risk - International Travel Have you traveled outside of the country in past 3 weeks: No - Coronavirus Screening Are you exhibiting any of the following symptoms?: No Close contact with a COVID-19 positive Pt in past 14-21 Days: No - Review of Systems Constitutional: Fatigue, Weakness Eyes: No Symptoms Ears, Nose, & Throat: No Symptoms Respiratory: No Symptoms Cardiac: No Symptoms Abdominal/Gastrointestinal: Abdominal Pain, Nausea, Vomiting Genitourinary Symptoms: No Symptoms Musculoskeletal: No Symptoms Neurological: No Symptoms Psychological: Anxiety Endocrine: No Symptoms Hematologic/Lymphatic: No Symptoms Immunological/Allergic: No Symptoms - Past Medical History Pertinent Past Medical History: Yes Neurological History: No Pertinent History ENT History: Other Cardiac History: Hypertension Respiratory History: No Pertinent History Endocrine Medical History: No Pertinent History Musculoskeletal History: Other GI Medical History: No Pertinent History History: Other Psycho-Social History: Depression Female Reproductive Disorders: No Pertinent History Other Medical History: KIDNEY STONES, BACK PAIN - Past Surgical History Past Surgical History: Yes Neuro Surgical History: No Pertinent History Cardiac: No Pertinent History Respiratory: No Pertinent History Gastrointestinal: No Pertinent History Genitourinary: No Pertinent History Female Surgical History: Section, Tubal Ligation Other Surgical History: SEVERAL SURGERIS ON SALIVARY GLANDS, LITHOTRIPSY - Social History Smoking Status: Current every day smoker How long have you smoked: Since 9 Exposure to second hand smoke: Yes Alcohol Use: None Drug Use: methamphetamines Patient Lives Alone: No Significant Family History: heart disease, diabetes - Female History Hx Last Menstrual Period: couple weeks ago Hx Now: No (tubal) - Nursing Vital Signs Nursing Vital Signs: Initial Vital Signs Temperature 97.5 F 05/09/20 13:48 Pulse Rate 77 05/09/20 13:48 Blood Pressure 205/115 05/09/20 13:48 O2 Sat by Pulse Oximetry 100 05/09/20 13:48 Pain Scale Pain Intensity 9 - Physical Exam General Appearance: no apparent distress Eye Exam: PERRL/EOMI Ears, Nose, Throat Exam: normal ENT inspection, pharyngeal erythema Neck Exam: normal inspection, non-tender, supple, full range of motion Respiratory Exam: normal breath sounds, lungs clear Cardiovascular Exam: regular rate/rhythm, normal heart sounds Gastrointestinal/Abdomen Exam: soft, tenderness (Upper abdomen more in the right upper and epigastric), guarding (Positive Saavedra sign) Back Exam: normal inspection, No CVA tenderness Extremity Exam: normal inspection, normal range of motion Neurologic Exam: alert, oriented x 3, cooperative Skin Exam: normal color SpO2 Interpretation: normal SpO2: 100 O2 Delivery: Room Air - Course Nursing assessment & vital signs reviewed: Yes Ordered Tests: Active Orders 24 hr Category Date Time Status IV Insertion STAT Care 05/09/20 13:59 Active NPO (ED) STAT Care 05/09/20 13:59 Active AMYLASE Stat Lab 05/09/20 14:19 Completed CBC W DIFF Stat Lab 05/09/20 14:19 Completed CMP Stat Lab 05/09/20 14:19 Completed HCG,QUALITATIVE URINE Stat Lab 05/09/20 Uncollected LIPASE Stat Lab 05/09/20 14:19 Completed UA W/RFX UR CULTURE Stat Lab 05/09/20 14:00 Uncollected Transfer Order Routine Transfer 05/09/20 Ordered Medication Summary Generic Name Dose Route Start Last Admin Trade Name Freq PRN Reason Stop Dose Admin Piperacillin Sod/Tazobactam 100 mls @ 200 mls/hr 05/09/20 16:40 Sod 3.375 gm/ Sodium Chloride IV 05/09/20 17:09 STAT ONE Discontinued Medications Generic Name Dose Route Start Last Admin Trade Name Freq PRN Reason Stop Dose Admin Sodium Chloride 1,000 mls @ 999 mls/hr 05/09/20 14:20 05/09/20 15:43 Sodium Chloride 0.9% 1000 Ml IV 05/09/20 15:20 Infused .Q1H1M STA Infusion Sodium Chloride Confirm 05/09/20 14:20 Sodium Chloride 0.9% 1000 Ml Administered 05/09/20 14:21 Dose 1,000 mls @ ud .ROUTE .STK-MED ONE Morphine Sulfate 4 mg 05/09/20 13:59 05/09/20 14:22 Morphine Sulfate 4 Mg Inj IV 05/09/20 14:00 4 mg STAT ONE Administration Morphine Sulfate Confirm 05/09/20 14:20 Morphine Sulfate 4 Mg Inj Administered 05/09/20 14:21 Dose 4 mg .ROUTE .STK-MED ONE Ondansetron HCl 4 mg 05/09/20 13:59 05/09/20 14:22 Zofran 4 Mg/2 Ml Vial IV 05/09/20 14:00 4 mg STAT ONE Administration Ondansetron HCl Confirm 05/09/20 14:20 Zofran 4 Mg/2 Ml Vial Administered 05/09/20 14:21 Dose 4 mg .ROUTE .STK-MED ONE Lab/Rad Data: Laboratory Result Diagrams 05/09/20 14:19 05/09/20 14:19 Laboratory Results 05/09/20 05/09/20 Range/Units 14:19 14:19 WBC 11.9 H (4.0-10.5) K/mm3 RBC 4.79 (4.1-5.4) M/mm3 Hgb 14.0 (12.0-16.0) gm/dl Hct 41.3 (35-47) % MCV 86.2 (78-100) fl MCH 29.2 (26-32) pg MCHC 33.9 (32-36) g/dl RDW 13.6 (11.5-14.0) % Plt Count 239 (150-450) K/mm3 MPV 11.1 H (7.5-11.0) fl Gran % 80.1 H (36.0-66.0) % Eos # (Auto) 0.09 (0-0.5) Absolute Lymphs (auto) 1.43 (1.0-4.6) Absolute Monos (auto) 0.82 (0.0-1.3) Lymphocytes % 12.0 L (24.0-44.0) % Monocytes % 6.9 (0.0-12.0) % Eosinophils % 0.8 (0.00-5.0) % Basophils % 0.2 (0.0-0.4) % Absolute Granulocytes 9.52 H (1.4-6.9) Basophils # 0.02 (0-0.4) Sodium 136 L (137-145) mmol/L Potassium 3.6 (3.5-5.1) mmol/L Chloride 101 (98-107) mmol/L Carbon Dioxide 26 (22-30) mmol/L Anion Gap 12.5 (5-15) MEQ/L BUN 4 L (7-17) mg/dL Creatinine 0.58 (0.52-1.04) mg/dL Estimated GFR > 60.0 ML/MIN Glucose 96 (74-106) mg/dL Calcium 9.4 (8.4-10.2) mg/dL Total Bilirubin 1.30 (0.2-1.3) mg/dL AST 54 H (14-36) U/L ALT 78 H (0-35) U/L Alkaline Phosphatase 122 (38-126) U/L Serum Total Protein 8.2 (6.3-8.2) g/dL Albumin 4.2 (3.5-5.0) g/dL Amylase 74 (30-110) U/L Lipase 25 (23-300) U/L - Progress Progress: improved, pain not gone completely, re-examined Progress Note: 05/09/20 17:01 She is given IV fluid and pain medications. I have repeated labs and has mildly elevated transaminases, normal bilirubin. Mildly elevated white count. Normal pancreatic enzymes. I have reviewed CT results from here 2 days ago and have obtained ultrasound report from [facility] which showed 2.8 cm stone in the neck of gallbladder. I believe patient is having acute cholecystitis and we do not need to repeat another imaging study. I have given her a dose of antibiotic. I have discussed with Dr. Lloyd and patient is being admitted. I have discussed with Dr. Titus and patient is initially admitted to medical floor for evaluation by surgery and possible cholecystectomy. Plan discussed with patient who understand and agrees with it. Discussed with : Kory Will see patient in: hospital (observation) Counseled pt/family regarding: lab results, diagnosis - Departure Departure Disposition: Observation Clinical Impression: Acute cholecystitis Condition: Stable Critical Care Time: No Referrals: DOCTOR,NO FAMILY [Primary Care Provider] -
[2020-05-09 14:32] LABS: ALBUMIN 4.2 g/dL (3.5-5.0); ALKALINE PHOSPHATASE 122 U/L (38-126); AMYLASE 74 U/L (30-110); ANION GAP 12.5 MEQ/L (5-15); BLOOD UREA NITROGEN 4 mg/dL (7-17); CHLORIDE 101 mmol/L (98-107); Calcium 9.4 mg/dL (8.4-10.2); Carbon Dioxide 26 mmol/L (22-30); Creatinine 1 0.58 mg/dL (0.52-1.04); Glucose 96 mg/dL (74-106); LIPASE 25 U/L (23-300); Potassium 3.6 mmol/L (3.5-5.1); SGOT/AST 54 U/L (14-36); SGPT/ALT 78 U/L (0-35); SODIUM 136 mmol/L (137-145); Total Protein 8.2 g/dL (6.3-8.2)
[2020-05-09] MEDS ORDERED: Zosyn 3.375 GM Vial 3.375 GM in Sodium Chloride 100ML MINI-BAG PLUS 100 ML IV ONE (16:40)
[2020-05-09] MEDS ORDERED: Zosyn 3.375 GM Vial IV ONE ×2 (17:36→23:08)
[2020-05-09] MEDS ORDERED: Sodium Chloride 100ML MINI-BAG PLUS 100 ML IV ONE ×2 (17:37→23:08)
[2020-05-09 18:11] LABS: Appearance CLEAR (CLEAR); Bacteria RARE /HPF (NEGATIVE); Bilirubin NEGATIVE (NEGATIVE); Blood SMALL Ery/ul (0-5); Epithelial Cells RARE /HPF (FEW); Glucose NEGATIVE (NEGATIVE); Ketones MODERATE (NEGATIVE); Leukocyte Esterase NEGATIVE (NEGATIVE); Mucus SLIGHT /HPF (NEGATIVE); Nitrite POSITIVE (NEGATIVE); Protein,Urine Dip NEGATIVE (Negative); Specific Gravity 1.014 (1.005-1.025); Urobilinogen 2 mg/dL (0-1)
[2020-05-09] MEDS: MORPHINE SULFATE 4 MG INJ IV PRN ×2 (18:17→23:19)
[2020-05-09] MEDS: Sodium Chloride 0.9% 1000 ML 1,000 ML IV SCH (18:17)
[2020-05-09] MEDS: Zofran 4 MG/2 ML VIAL IV PRN (18:17)
[2020-05-09] MEDS: Zosyn 3.375 GM Vial 3.375 GM in Sodium Chloride 100ML MINI-BAG PLUS 100 ML IV SCH ×2 (18:56→23:16)
[2020-05-10] MEDS: Sodium Chloride 0.9% 1000 ML 1,000 ML IV SCH (01:37)
[2020-05-10] MEDS ORDERED: Sodium Chloride 100ML MINI-BAG PLUS 100 ML IV ONE (04:04)
[2020-05-10] MEDS: MORPHINE SULFATE 4 MG INJ IV PRN (04:07)
[2020-05-10] MEDS: Zofran 4 MG/2 ML VIAL IV PRN ×2 (04:07→22:23)
[2020-05-10] MEDS: Zosyn 3.375 GM Vial 3.375 GM in Sodium Chloride 100ML MINI-BAG PLUS 100 ML IV SCH ×2 (05:03→13:21)
[2020-05-10 05:57] LABS: BASOPHIL % 0.1 % (0.0-0.4); Basophil (Absolute #) 0.01 (0-0.4); Eosinophil (Absolute #) 0.11 (0-0.5); Hematocrit 39.2 % (35-47); Lymphocyte (Absolute #) 1.56 (1.0-4.6); Mean Cell Volume 87.1 fl (78-100); Mean Corpuscular Hemoglobin 28.9 pg (26-32); Mean Corpuscular Hgb Concent. 33.2 g/dl (32-36); Monocyte (Absolute #) 0.93 (0.0-1.3); Monocytes % 8.4 % (0.0-12.0); Neutrophil % 76.5 % (36.0-66.0); Platelet Count 218 K/mm3 (150-450); Red Cell Distribution Width 13.5 % (11.5-14.0); White Blood Count 11.1 K/mm3 (4.0-10.5)
[2020-05-10 06:23] LABS: ALBUMIN 3.3 g/dL (3.5-5.0); ALKALINE PHOSPHATASE 96 U/L (38-126); BLOOD UREA NITROGEN 3 mg/dL (7-17); CHLORIDE 101 mmol/L (98-107); Calcium 8.5 mg/dL (8.4-10.2); Carbon Dioxide 26 mmol/L (22-30); Creatinine 1 0.52 mg/dL (0.52-1.04); Glucose 85 mg/dL (74-106); Potassium 3.5 mmol/L (3.5-5.1); SGOT/AST 39 U/L (14-36); SGPT/ALT 58 U/L (0-35); SODIUM 134 mmol/L (137-145); Total Protein 6.6 g/dL (6.3-8.2)
[2020-05-10] MEDS ORDERED: Lactated Ringers 1,000 ML IV SCH (08:00)
[2020-05-10] MEDS ORDERED: MEFOXIN 2 GM PREMIX** 2 GM/50 ML ML IV SCH (08:00)
[2020-05-10] MEDS ORDERED: Xylocaine-Mpf 2% 5 Ml Vial ONE (10:59)
[2020-05-10] MEDS ORDERED: BRIDION 200MG/2ML IV ONE (10:59)
[2020-05-10] MEDS ORDERED: DIPRIVAN 200 MG/20 ML IV ONE (10:59)
[2020-05-10] MEDS ORDERED: Zofran 4 MG/2 ML VIAL ONE (10:59)
[2020-05-10] MEDS ORDERED: Zemuron 100 MG/10 ML ONE ×2 (10:59→11:51)
[2020-05-10] MEDS ORDERED: TORAdol 30 mg Injection ONE (10:59)
[2020-05-10] MEDS ORDERED: Decadron 4 MG INJ ONE (10:59)
[2020-05-10] MEDS ORDERED: SUBLIMAZE 100 MCG/2 ML ONE (11:00)
[2020-05-10] MEDS ORDERED: Sensorcaine 0.25% 10 ML ONE (11:03)
[2020-05-10] MEDS ORDERED: Lactated Ringers 1,000 ML IV ONE (11:03)
[2020-05-10] MEDS ORDERED: DILAUDID 2 MG INJECTION ONE (12:11)
[2020-05-10] MEDS ORDERED: TYLENOL 325 MG PO PRN (13:22)
[2020-05-10] MEDS: D5W/0.45NS W/ 20mEq KCl 1000 ML 1,000 ML IV SCH (13:39)
[2020-05-10] MEDS: Unasyn 3 GM Vial*** 3 G in Sodium Chloride 100ML MINI-BAG PLUS 100 ML IV SCH ×2 (14:28→20:03)
[2020-05-10] MEDS: MORPHINE SULFATE 2 MG INJ IV PRN ×4 (15:50→22:18)
--- NOTE | 2020-05-10 18:53 | PCM.HP ---
History of Present Illness - Chief Complaint Chief Complaint: ACUTE CHOLECYSTITIS Date: 05/10/20 History of Present Illness: is a 35 year old female seen and examined this am following ER admission for acute cholecystitis. Patient reports that she has been dealing with this the past couple of days. She originally came to [facility] was sent home went to [facility] the following day and was sent home and then came back to [facility] ER and was admitted. She reports she was scheduled for surgery on May 15. She had such severe nausea and vomiting that she returned to the ER. She also believes she was having fever and chills. She reports that since admission she still has been nauseated but no vomiting. Patient reports RUQ pain. Patient reports that she had recently used meth and last time was a few days ago. She reports that she does at times have SI thoughts and has had them recently due to the passing of her father. She denies any SI at this time. She reports that her children are the motivator for her not to act on SI. She reports that she relapsed and that she was at [email or web address] for tx which she hated. Patient had no other reported concerns at this time. She used to see Dr Schreiber but does not have a PCP. - Review of Systems Constitutional: Fever, Chills Eyes: No Symptoms Ears, Nose, & Throat: No Symptoms Respiratory: No Symptoms Cardiac: No Symptoms Abdominal/Gastrointestinal: Abdominal Pain, Nausea, Vomiting, No Diarrhea, No Constipation Genitourinary Symptoms: No Symptoms Musculoskeletal: No Symptoms Skin: No Symptoms Neurological: No Symptoms Psychological: Drug Abuse, Anxiety, Depression, Suicidal Ideations, No Alcohol Abuse Medications & Allergies Home Medications: Home Medication List No Reportable Medications [No Reported Medications] 05/09/20 [History Confirmed 05/09/20] Allergies/Adverse Reactions: Allergies Allergy/AdvReac Type Severity Reaction Status Date / Time No Known Drug Allergies Allergy Verified 05/09/20 13:59 - Past Medical History Past Medical History: Yes Neurological History: No Pertinent History ENT History: Other Cardiac History: No Pertinent History Respiratory History: No Pertinent History Endocrine Medical History: No Pertinent History Musculoskelatal History: Other GI Medical History: No Pertinent History History: Other Pyscho-Social History: Depression Reproductive Disorders: No Pertinent History Comment: KIDNEY STONES, BACK PAIN - Female History Hx Last Menstrual Period: couple weeks ago Are you now?: No (tubal) - Past Surgical History Past Surgical History: Yes Neuro Surgical History: No Pertinent History Cardiac History: No Pertinent History Respiratory Surgery: No Pertinent History GI Surgical History: No Pertinent History Genitourinary Surgical Hx: No Pertinent History Female Surgical History: Section, Tubal Ligation Other Surgical History: SEVERAL SURGERIS ON SALIVARY GLANDS, LITHOTRIPSY - Social History Smoking Status: Current every day smoker How long have you smoked: Since 9 Exposure to second hand smoke: Yes Alcohol: None Drug Use: methamphetamines Significant Family History: heart disease, diabetes - Physical Exam Vital Signs: Vital Signs - 24 hr Temp Pulse Resp BP Pulse Ox 05/10/20 16:45 116 H 17 135/89 97 05/10/20 15:20 115 H 17 141/93 96 05/10/20 14:20 112 H 16 139/93 95 05/10/20 13:50 85 18 141/94 97 05/10/20 13:20 116 H 17 147/94 95 05/10/20 13:05 98.2 F 114 H 139/84 93 L 05/10/20 07:38 98.5 F 102 H 16 144/87 96 05/10/20 07:20 98.5 F 102 H 16 144/87 96 05/10/20 04:00 98.6 F 90 16 180/94 98 05/09/20 23:54 98.5 F 85 20 176/100 99 General Appearance: moderate distress Neurologic Exam: alert, oriented x 3, cooperative, depressed mood/affect Eye Exam: eyes nml inspection, No scleral icterus Ears, Nose, Throat Exam: moist mucous membranes Respiratory Exam: normal breath sounds, lungs clear, No respiratory distress, No diminished breath sounds, No wheezing Cardiovascular Exam: regular rate/rhythm, normal heart sounds, No murmur, No friction rub, No gallop, No edema Gastrointestinal/Abdomen Exam: soft, normal bowel sounds, tenderness (Positive Stollings sign), No distention, No guarding, No rebound Pelvic Exam: not done Rectal Exam: not done Extremity Exam: normal inspection, No pedal edema, No swelling Skin Exam: warm, dry, pale Results - Labs Lab/Micro Results: Lab Results-Last 24 Hours 05/10/20 05/10/20 Range/Units 05:43 05:43 WBC 11.1 H (4.0-10.5) K/mm3 RBC 4.50 (4.1-5.4) M/mm3 Hgb 13.0 (12.0-16.0) gm/dl Hct 39.2 (35-47) % MCV 87.1 (78-100) fl MCH 28.9 (26-32) pg MCHC 33.2 (32-36) g/dl RDW 13.5 (11.5-14.0) % Plt Count 218 (150-450) K/mm3 MPV 11.0 (7.5-11.0) fl Gran % 76.5 H (36.0-66.0) % Eos # (Auto) 0.11 (0-0.5) Absolute Lymphs (auto) 1.56 (1.0-4.6) Absolute Monos (auto) 0.93 (0.0-1.3) Lymphocytes % 14.0 L (24.0-44.0) % Monocytes % 8.4 (0.0-12.0) % Eosinophils % 1.0 (0.00-5.0) % Basophils % 0.1 (0.0-0.4) % Absolute Granulocytes 8.50 H (1.4-6.9) Basophils # 0.01 (0-0.4) Sodium 134 L (137-145) mmol/L Potassium 3.5 (3.5-5.1) mmol/L Chloride 101 (98-107) mmol/L Carbon Dioxide 26 (22-30) mmol/L Anion Gap 10.0 (5-15) MEQ/L BUN 3 L (7-17) mg/dL Creatinine 0.52 (0.52-1.04) mg/dL Estimated GFR > 60.0 ML/MIN Glucose 85 (74-106) mg/dL Calcium 8.5 (8.4-10.2) mg/dL Total Bilirubin 2.10 H (0.2-1.3) mg/dL AST 39 H (14-36) U/L ALT 58 H (0-35) U/L Alkaline Phosphatase 96 (38-126) U/L Serum Total Protein 6.6 (6.3-8.2) g/dL Albumin 3.3 L (3.5-5.0) g/dL Microbiology 05/09/20 17:30 Urine Culture - Preliminary Clean Catch Midstream GRAM NEGATIVE ID AND SENSITIVITY PENDING - Other Procedures and Tests Respiratory Therapy 05/10/20 13:11 Incentive Spirometry UD Assessment/Plan (1) Acute cholecystitis Current Visit: Yes Status: Acute Assessment & Plan: Patient is scheduled to have surgery this am. She will likely be able to be discharged tomorrow with follow up with general surgery Code(s): K81.0 - ACUTE CHOLECYSTITIS (2) Methamphetamine abuse Current Visit: No Status: Acute Assessment & Plan: Patient reports recent relapse. Will have to notify cps to make sure that patient's children have an acceptable guardian. Patient was at [facility] for tx and did not like it there. Unsure what her plans are to get tx Code(s): F15.10 - OTHER STIMULANT ABUSE, UNCOMPLICATED (3) UTI (urinary tract infection) Current Visit: No Status: Acute Assessment & Plan: Nitrite positive. She has gotten some antibiotics. Will follow up on culture and make sure patient goes home on appropriate antibiotics. Code(s): N39.0 - URINARY TRACT INFECTION, SITE NOT SPECIFIED
[2020-05-11] MEDS: D5W/0.45NS W/ 20mEq KCl 1000 ML 1,000 ML IV SCH (01:42)
[2020-05-11] MEDS: Unasyn 3 GM Vial*** 3 G in Sodium Chloride 100ML MINI-BAG PLUS 100 ML IV SCH ×2 (01:43→08:51)
[2020-05-11] MEDS: MORPHINE SULFATE 2 MG INJ IV PRN ×3 (01:43→09:57)
[2020-05-11 04:36] LABS: Hematocrit 35.4 % (35-47); Hemoglobin 11.9 gm/dl (12.0-16.0); Mean Cell Volume 86.6 fl (78-100); Mean Corpuscular Hemoglobin 29.1 pg (26-32); Mean Corpuscular Hgb Concent. 33.6 g/dl (32-36); Mean Platelet Volume 11.1 fl (7.5-11.0); Platelet Count 233 K/mm3 (150-450); Red Blood Count 4.09 M/mm3 (4.1-5.4); Red Cell Distribution Width 13.2 % (11.5-14.0); White Blood Count 17.8 K/mm3 (4.0-10.5)
[2020-05-11 04:50] LABS: ANION GAP 7.3 MEQ/L (5-15); BLOOD UREA NITROGEN 5 mg/dL (7-17); CHLORIDE 102 mmol/L (98-107); Calcium 8.8 mg/dL (8.4-10.2); Carbon Dioxide 29 mmol/L (22-30); Creatinine 1 0.54 mg/dL (0.52-1.04); Glucose 123 mg/dL (74-106); Potassium 4.1 mmol/L (3.5-5.1); SODIUM 134 mmol/L (137-145)
[2020-05-11] MEDS: NORCO 5/325 MG PO PRN ×2 (08:51→12:56)
--- NOTE | 2020-05-11 09:08 | OP ---
SURGERY DATE/TIME: 05/10/2020 1100 PREOPERATIVE DIAGNOSIS: Symptomatic cholelithiasis with large gallstone lodged in the neck of the gallbladder. POSTOPERATIVE DIAGNOSIS: Lodged stone in the neck of the gallbladder with acute cholecystitis/cholelithiasis severe. PROCEDURE: Laparoscopic cholecystectomy. SURGEON: Dr. Louis Lloyd. ANESTHESIA: General. ESTIMATED BLOOD LOSS: None. DRAINS: None. CONDITION: Stable. INDICATIONS: A 35 year old had been to the [facility] Emergency Room twice and had been sent home both times. She has no insurance and was basically sent home. She is seen and examined in this emergency room. She is admitted seen and examined. Options were discussed with her. DESCRIPTION OF PROCEDURE AND FINDINGS: Taken to surgery. General anesthetic, routine prep and drape. Veress needle inserted. Opening pressure of 1, insufflating pressure 14. Four - 5's were placed. Gallbladder was nearly 10 inches long. Stone was impacted in the infundibulum. Cystic duct defined taken with stapling device. It was slightly dilated and slightly thick. Cystic artery triply clipped. Gallbladder rolled out of gallbladder fossa. The field was totally dry and clean. It was necessary to widen the upper abdominal port to withdrawal this massive gallbladder. The field was irrigated. No drains were placed. Hole closure device with [id number] 0 Vicryl at the epigastric port. Skin closed with shiela. Sterile dressing applied. No family was present. The patient tolerated the procedure satisfactorily.
[2020-05-11] MEDS ORDERED: ENOXAPARIN SODIUM SQ SCH (10:00)
[2020-05-11 15:59] VITALS: BP 144/92; PULSE 95; O2SAT 96
--- NOTE | 2020-05-11 19:12 | PCM.DS ---
Discharge Summary Date of Admission: 05/09/20 17:47 Admitting Physician: NISHANT HORNER MD Primary Care Provider: NO FAMILY DOCTOR Allergies Allergies No Known Drug Allergies Allergy (Verified 05/09/20 13:59) Hospital Summary - Vitals & Intake/Output Vital Signs: Vital Signs Temperature 98.3 F 05/11/20 15:57 Pulse Rate 95 H 05/11/20 15:57 Respiratory Rate 18 05/11/20 15:57 Blood Pressure 144/92 05/11/20 15:57 O2 Sat by Pulse Oximetry 96 05/11/20 15:57 Intake & Output: Intake & Output 05/09/20 05/10/20 05/11/20 05/12/20 11:59 11:59 11:59 11:59 Intake Total 1587 2735 Output Total 800 1300 Balance 787 1435 Weight 72.575 kg - Lab Result Diagrams: 05/11/20 04:25 05/11/20 04:25 Lab Results-Last 24 Hrs: Lab Results-Last 24 Hours 05/11/20 05/11/20 Range/Units 04:25 04:25 WBC 17.8 H (4.0-10.5) K/mm3 RBC 4.09 L (4.1-5.4) M/mm3 Hgb 11.9 L (12.0-16.0) gm/dl Hct 35.4 (35-47) % MCV 86.6 (78-100) fl MCH 29.1 (26-32) pg MCHC 33.6 (32-36) g/dl RDW 13.2 (11.5-14.0) % Plt Count 233 (150-450) K/mm3 MPV 11.1 H (7.5-11.0) fl Sodium 134 L (137-145) mmol/L Potassium 4.1 (3.5-5.1) mmol/L Chloride 102 (98-107) mmol/L Carbon Dioxide 29 (22-30) mmol/L Anion Gap 7.3 (5-15) MEQ/L BUN 5 L (7-17) mg/dL Creatinine 0.54 (0.52-1.04) mg/dL Estimated GFR > 60.0 ML/MIN Glucose 123 H (74-106) mg/dL Calcium 8.8 (8.4-10.2) mg/dL Micro Results-Entire Visit: Microbiology 05/09/20 17:30 Urine Culture - Final Clean Catch Midstream Escherichia Coli - Procedures and Test Procedures and Tests throughout Hospitalization: Therapy Orders & Screens 05/09/20 18:47 Smoking Cessation Education ONCE Comment: Diagnosis: ACUTE CHOLECYSTITIS Smoking Status: Current every day smoker How long have you smoked: Since 9 Approximately how many cigarettes per day: 1/2 PPD Do you dip or chew tobacco: No 05/10/20 13:11 Incentive Spirometry UD Comment: Diagnosis: ACUTE CHOLECYSTITIS Final Diagnosis/Problem List - Final Discharge Diagnosis/Problem (1) Acute cholecystitis Status: Acute Code(s): K81.0 - ACUTE CHOLECYSTITIS (2) Methamphetamine abuse Status: Acute Code(s): F15.10 - OTHER STIMULANT ABUSE, UNCOMPLICATED (3) UTI (urinary tract infection) Status: Acute Code(s): N39.0 - URINARY TRACT INFECTION, SITE NOT SPECIFIED - Discharge Disposition: Home, Self-Care Condition: Stable Prescriptions: New Levofloxacin [Levofloxacin 250MG Tablet] 250 mg PO DAILY #5 tab Instructions: Cholecystectomy (DC) Follow up with: NISHANT HORNER MD [ACTIVE STAFF] - 05/25/20 10:45 am RODNEY MCKINNEY [ACTIVE STAFF] - 05/21/20 2:00 pm
[2020-05-12] MEDS ORDERED: Levofloxacin 250MG Tablet PO SCH (10:00)
== END 2020-05-11 16:20 | disposition home or self-care (01) ==
LOC: ED 13:13 → MED SURG 17:47
PROVIDERS: ADMIT Family Medicine; ATTEND Family Medicine
DX: K80.81 Other cholelithiasis with obstruction (principal); N39.0 Urinary tract infection, site not specified; F15.10 Other stimulant abuse, uncomplicated
CPT/HCPCS: 36415; 47562; 80048; 80053; 81001; 82150; 83690; 84703; 85025; 85027; 87077; 87086; 87186; 96360; 96365; 96374; 96375; 99285; G0378; J0295; J0694; J1100; J1170; J1885; J2270; J2405; J2704; J3010; A9270-GY

== ENCOUNTER 2023-08-23 03:35 | Emergency (ER) | payer OTHER ==
[2023-08-23 04:00] VITALS: TEMP 97.2
--- NOTE | 2023-08-23 04:00 | ERPHSYRPT ---
- History of Present Illness Time Seen by Provider: 08/23/23 04:00 Source: patient Exam Limitations: no limitations Physician History: Patient is a 38-year-old female pen[facility]iary inmate, HIV positive presents to the emergency department for evaluation of swelling to the left maxilla. Patient has carious dentition throughout. Patient's symptoms started approximately 3 to 4 days ago. Symptoms have been progressive. Patient currently on amoxicillin. Symptoms are moderate in intensity. No specific worsening improving factors. Patient voices no other complaints or concerns at this time. Portions of this note were created with voice recognition technology. There may be grammatical, spelling, punctuation or sound alike errors Timing/Duration: days Severity: moderate ENT Location: facial (Left maxillary sinus) Prearrival Treatment: prescription meds (Patient has been on amoxicillin 500 mg for 4 days.) Modifying Factors: Improves With: nothing Associated Symptoms: denies symptoms Allergies/Adverse Reactions: No Known Drug Allergies Allergy (Verified 08/23/23 03:44) Home Medications: Amoxicillin 500 mg PO BID 08/23/23 [History] Hx Tetanus, Diphtheria Vaccination/Date Given: (UNKNOWN) Hx Influenza Vaccination/Date Given: No Hx Pneumococcal Vaccination/Date Given: No - Review of Systems Constitutional: No Symptoms, No Fever, No Chills Eyes: No Symptoms Ears, Nose, & Throat: No Symptoms Respiratory: No Symptoms, No Cough, No Dyspnea Cardiac: No Symptoms, No Chest Pain, No Edema, No Syncope Abdominal/Gastrointestinal: No Symptoms, No Abdominal Pain, No Nausea, No Vomiting, No Diarrhea Genitourinary Symptoms: No Symptoms, No Dysuria Musculoskeletal: No Symptoms, No Back Pain, No Neck Pain Skin: No Symptoms, No Rash Neurological: No Symptoms, No Dizziness, No Focal Weakness, No Sensory Changes Psychological: No Symptoms Endocrine: No Symptoms Hematologic/Lymphatic: No Symptoms Immunological/Allergic: No Symptoms All Other Systems: Reviewed and Negative - Past Medical History Pertinent Past Medical History: Yes Neurological History: No Pertinent History ENT History: Other Cardiac History: No Pertinent History Respiratory History: No Pertinent History Endocrine Medical History: No Pertinent History Musculoskeletal History: Other GI Medical History: No Pertinent History History: Other Psycho-Social History: Depression Female Reproductive Disorders: No Pertinent History Other Medical History: KIDNEY STONES, BACK PAIN - Past Surgical History Past Surgical History: Yes Neuro Surgical History: No Pertinent History Cardiac: No Pertinent History Respiratory: No Pertinent History Gastrointestinal: No Pertinent History Genitourinary: No Pertinent History Female Surgical History: Section, Tubal Ligation Other Surgical History: SEVERAL SURGERIS ON SALIVARY GLANDS, LITHOTRIPSY - Social History Smoking Status: Current every day smoker How long have you smoked: Since 8 Exposure to second hand smoke: Yes Alcohol Use: None Drug Use: methamphetamines Patient Lives Alone: No Significant Family History: heart disease, diabetes - Nursing Vital Signs Nursing Vital Signs: Initial Vital Signs Pulse Rate 106 H 08/23/23 03:44 Respiratory Rate 20 08/23/23 03:44 Blood Pressure 167/122 08/23/23 03:44 O2 Sat by Pulse Oximetry 98 08/23/23 03:44 Pain Scale Pain Intensity 7 - Physical Exam General Appearance: no apparent distress, alert Eye Exam: bilateral eye: normal inspection, PERRL, EOMI Ear Exam: bilateral ear: auricle normal, canal normal, TM normal Nasal Exam: normal inspection, sinus tenderness (Left maxilla is swollen tender and warm) Throat Exam: pharynx normal, moist mucus membranes, No tonsillar exudate Neck Exam: supple Cardiovascular/Respiratory Exam: normal breath sounds, regular rate/rhythm Abdominal Exam: non-tender, soft Neurologic Exam: alert, oriented x 3, sensation nml, No motor deficits Skin Exam: normal color, warm, dry SpO2 Interpretation: normal SpO2: 96 O2 Delivery: Room Air - Course Nursing assessment & vital signs reviewed: Yes - CT Exams Maxillofacial Bones CT Interpretation: Tele-radiologist Report (No comps. Minimal pansinusitis) Ordered Tests: Active Orders 24 hr Category Date Time Status FACIAL BONES WO CONTRAST [CT] Stat Exams 08/23/23 03:51 Taken Medication Summary Discontinued Medications Generic Name Dose Route Start Last Admin Trade Name Freq PRN Reason Stop Dose Admin Ketorolac Tromethamine 30 mg 08/23/23 04:33 08/23/23 04:34 Ketorolac Tromethamine 30 Mg/Ml Inj IM 08/23/23 04:34 30 mg STAT ONE Administration Ketorolac Tromethamine Confirm 08/23/23 04:33 Ketorolac Tromethamine 30 Mg/Ml Inj Administered 08/23/23 04:34 Dose 30 mg .ROUTE .STK-MED ONE - Progress Progress: improved Progress Note: Patient 38-year-old female presents to the emergency department for evaluation of swelling to her left maxilla for 4 days. Patient is a penitentiary inmate and currently escorted by first officer and flight instructor. Patient currently on amoxicillin. Physical exam reveals tenderness and swelling over the left maxilla. Patient has poor dentition. Patient received IM Toradol for pain control. Pain significantly improved. CT facial bones reveals pansinusitis. We advised to upgrade the antibiotic from amoxicillin to clindamycin. Patient received an oral dose of clindamycin in our ED. A prescription for Augmentin was provided to patient. Patient to take the Augmentin as prescribed. Patient will likely require a dental follow-up as soon as feasible. Portions of this note were created with voice recognition technology. There may be grammatical, spelling, punctuation or sound alike errors Complexity of problems addressed is moderate acute complicated No critical care time Complexity of data reviewed and analyzed is moderate. Test ordered test reviewed. Results analyzed and clinically correlated with history and physical exam. Management determined accordingly Risk of complication and or risk of morbidity/mortality of patient management is moderate. A prescription for Augmentin provided to first officer and flight instructor for medical to administer Vital stable. Time spent to discharge patient is approximately 15 minutes. Plan of care established for shared decision making. No social determinants of health present impede follow-up. Portions of this note were created with voice recognition technology. There may be grammatical, spelling, punctuation or sound alike errors 08/23/23 05:10 Counseled pt/family regarding: diagnosis, need for follow-up, rad results - Departure Departure Disposition: Home Clinical Impression: Pansinusitis, Carious dentition Condition: Stable Critical Care Time: No Referrals: DOCTOR,NO FAMILY [Primary Care Provider] - Follow up/PCP as directed DUGLAS ROLAND MD [ACTIVE STAFF] - Follow up/PCP as directed Additional Instructions: Discharge/Care Plan MARTY JADE was seen on 08/23/23 in the Emergency Room. The patient was counseled regarding Diagnosis,Lab results, Imaging studies, need for follow up and when to return to the Emergency Room. Prescriptions given: Discharge Note I have spoken with the patient and/or caregivers. I have explained the patient's condition, diagnosis and treatment plan based on the information available to me at this time. I have answered the patient's and/or caregiver's questions and addressed any concerns. The patient and/or caregivers have as good understanding of the patient's diagnosis, condition and treatment plan as can be expected at this point. The vital signs have been stable. The patient's condition is stable and appropriate for discharge from the emergency department. The patient will pursue further outpatient evaluation with the primary care physician or other designated or consulting physician as outlined in the discharge instructions. The patient and/or caregivers are agreeable to this plan of care and follow-up instructions have been explained in detail. The patient and/or caregivers have received these instruction. The patient/and or caregivers are aware that any significant change in condition or worsening of symptoms should prompt an immediate return to this or the closest emergency department or call 911.
[2023-08-23] MEDS ORDERED: TORAdol 30 mg Injection IM ONE (04:33)
[2023-08-23] MEDS ORDERED: TORAdol 30 mg Injection ONE (04:33)
[2023-08-23 04:40] VITALS: RESP 18
[2023-08-23] MEDS ORDERED: Augmentin 875-125 Tablet PO ONE (04:58)
[2023-08-23] MEDS ORDERED: Augmentin 875-125 Tablet ONE (05:00)
[2023-08-23 05:01] VITALS: O2SAT 96
[2023-08-23 05:10] VITALS: BP 143/93; PULSE 104
--- NOTE | 2023-08-23 08:57 | XRAY ---
Indication: Left maxillary pain. Multiple contiguous axial images obtained through the facial bones. Sagittal and coronal reformatted images obtained. Comparison: None No acute fracture, suspicious bony lesions, or radiopaque foreign body. Orbits including roof, ramírez, and floors intact. Numerous bilateral upper and lower dental caries. TMJ bilaterally symmetric. Minimal/mild mucosal thickening both ethmoid, both maxillary sinuses, and both ostiomeatal units without fluid leveling. Mild left infraorbital soft tissue swelling/edema. Lack of IV contrast precludes further characterization. Remaining visualized noncontrasted soft tissues including base of brain are unremarkable. Impression: Paranasal sinus disease and numerous dental caries. Left infraorbital soft tissue swelling/edema either posttraumatic versus inflammatory/infectious. Remaining CT facial bones negative.
== END 2023-08-23 05:23 | disposition home or self-care (01) ==
LOC: EEVIPCON 03:35 → ED 03:35
DX: J32.4 Chronic pansinusitis (principal); K02.9 Dental caries, unspecified; Z21 Asymptomatic human immunodeficiency virus [HIV] infection status; Z72.0 Tobacco use
CPT/HCPCS: 70486; 96372; 99283; J1885; A9270-GY